=== PATIENT | male | born 1960 | race Caucasian/White ===

== ENCOUNTER 2016-09-11 17:11 | Emergency (ER) | payer BC, OTHER ==
[2016-09-11 18:41] LABS: BASOPHIL % 0.3 % (0.0-0.4); Eosinophil % 2.3 % (0.00-5.0); Granulocytes % 67.9 % (36.0-66.0); Lymphocytes % 17.3 % (24.0-44.0); Mean Cell Volume 92.2 fl (78-100); Mean Corpuscular Hemoglobin 30.5 pg (26-32); Mean Platelet Volume 10.2 fl (6-9.5); Monocytes % 12.2 % (0.0-12.0); Platelet Count 212 K/mm3 (150-450); Red Blood Count 4.88 M/mm3 (4.1-5.6); Red Cell Distribution Width 14.4 % (11.5-14.0); White Blood Count 11.8 K/mm3 (4.0-10.5)
[2016-09-11 18:51] LABS: ALBUMIN 3.5 g/dL (3.4-5.0); ANION GAP 8.8 MEQ/L (5-15); BILIRUBIN,TOTAL 0.4 mg/dL (0.2-1.0); Carbon Dioxide 31.8 mEq/L (21-32); Potassium 4.6 mEq/L (3.5-5.1); Total Protein 7.8 gm/dL (6.4-8.2)
--- NOTE | 2016-09-11 18:54 | ERPHSYRPT ---
<WANDA KELLER - Last Filed: 09/11/16 18:49> - History of Present Illness Time Seen by Provider: 09/11/16 18:15 Historian: patient Exam Limitations: no limitations Patient Subjective Stated Complaint: pt alert, resp easy, skin w/d, moves all ext well, pain with palpation to left side of abd Triage Nursing Assessment: co pain to left abd, hurts worse when moves, pain has been going on since satuardae, no fever,nausea or vomiting, no pain with urination,no injury to abd or back Timing/Duration: day(s) (3) Activities at Onset: none Quality: sharpness Location: other (Left lower costal margin) Chest Pain Radiation: no radiation Severity of Pain-Max: moderate Severity of Pain-Current: moderate Modifying Factors: Improves With: movement, other (heavy smoker) Allergies/Adverse Reactions: naproxen [From Aleve] Allergy (Verified 09/11/16 17:24) Hx Tetanus, Diphtheria Vaccination/Date Given: Yes Hx Influenza Vaccination/Date Given: Yes Hx Pneumococcal Vaccination/Date Given: No Immunizations Up to Date: Yes - Review of Systems Constitutional: No Symptoms Eyes: No Symptoms Ears, Nose, & Throat: No Symptoms Respiratory: Cough, Dyspnea Cardiac: No Symptoms Abdominal/Gastrointestinal: No Symptoms Musculoskeletal: No Symptoms Skin: No Symptoms Neurological: No Symptoms Psychological: No Symptoms Endocrine: No Symptoms Hematologic/Lymphatic: No Symptoms Immunological/Allergic: No Symptoms - Past Medical History Pertinent Past Medical History: Yes Respiratory History: COPD, Emphysema GI Medical History: Diverticulosis - Past Surgical History Past Surgical History: Yes Gastrointestinal: Cholecystectomy, Hernia Repair - Social History Smoking Status: Current every day smoker Exposure to second hand smoke: Yes Drug Use: none Patient Lives Alone: No - Nursing Vital Signs Nursing Vital Signs: Initial Vital Signs Temperature 98.8 F Temperature Source Oral Pulse Rate 79 Respiratory Rate 20 Blood Pressure [Right Arm] 119/84 Pain Intensity 6 - Physical Exam General Appearance: mild distress Eye Exam: eyes nml inspection Ears, Nose, Throat Exam: normal ENT inspection, pharynx normal Neck Exam: normal inspection, non-tender, supple, full range of motion Respiratory Exam: normal breath sounds, chest tenderness (left lower lateral costal margin), lungs clear, airway intact Cardiovascular Exam: regular rate/rhythm, normal heart sounds, normal peripheral pulses Gastrointestinal/Abdomen Exam: soft, normal bowel sounds, tenderness Back Exam: normal inspection, normal range of motion, No CVA tenderness Extremity Exam: normal inspection, normal range of motion, pelvis stable Neurologic Exam: alert, oriented x 3, cooperative Skin Exam: normal color, warm, dry SpO2 Interpretation: normal SpO2: 96 Oxygen Delivery: Room Air - Course Nursing assessment & vital signs reviewed: Yes Ordered Tests: Active Orders 24 hr Category Date Time Status Clean Catch Urine Specimen STAT Care 09/11/16 18:31 Active IV Insertion STAT Care 09/11/16 17:40 Active ABDOMEN AND PELVIS W CONTRAST [CT] Stat Exams 09/11/16 19:38 Taken CHEST 2 VIEWS (PA AND LAT) Stat Exams 09/11/16 18:31 Taken CBC W DIFF Stat Lab 09/11/16 18:37 Completed CMP Stat Lab 09/11/16 18:37 Completed LIPASE Stat Lab 09/11/16 18:37 Completed UA W/ MICROSCOPIC Stat Lab 09/11/16 18:37 Completed Medication Summary Discontinued Medications Generic Name Dose Route Start Last Admin Trade Name Rolando PRN Reason Stop Dose Admin Sodium Chloride 1,000 mls @ 999 mls/hr 09/11/16 19:37 09/11/16 20:25 Sodium Chloride 0.9% 1000 Ml IV 09/11/16 20:37 999 mls/hr .Q1H1M STA Administration Sodium Chloride Confirm 09/11/16 20:24 Sodium Chloride 0.9% 1000 Ml Administered 09/11/16 20:25 Dose 1,000 mls @ ud .ROUTE .STK-MED ONE Lab/Rad Data: Laboratory Result Diagrams 09/11/16 18:37 09/11/16 18:37 Laboratory Results 09/11/16 09/11/16 09/11/16 Range/Units 18:37 18:37 18:37 WBC 11.8 H (4.0-10.5) K/mm3 RBC 4.88 (4.1-5.6) M/mm3 Hgb 14.9 (12.5-18.0) gm/dl Hct 45.0 (42-50) % MCV 92.2 (78-100) fl MCH 30.5 (26-32) pg MCHC 33.1 (32-36) g/dl RDW 14.4 H (11.5-14.0) % Plt Count 212 (150-450) K/mm3 MPV 10.2 H (6-9.5) fl Gran % 67.9 H (36.0-66.0) % Lymphocytes % 17.3 L (24.0-44.0) % Monocytes % 12.2 H (0.0-12.0) % Eosinophils % 2.3 (0.00-5.0) % Basophils % 0.3 (0.0-0.4) % Basophils # 0.04 (0-0.4) Sodium 140 (136-145) mEq/L Potassium 4.6 (3.5-5.1) mEq/L Chloride 104 (98-107) mEq/L Carbon Dioxide 31.8 (21-32) mEq/L Anion Gap 8.8 (5-15) MEQ/L BUN 18 (9-20) mg/dL Creatinine 1.32 H (0.55-1.30) mg/dl Estimated GFR 60 ML/MIN Glucose 97 (70-110) MG/DL Calcium 9.2 (8.5-10.1) mg/dL Total Bilirubin 0.40 (0.2-1.0) mg/dL AST 16 (15-37) U/L ALT 16 (12-78) U/L Alkaline Phosphatase 59 (46-116) U/L Serum Total Protein 7.8 (6.4-8.2) gm/dL Albumin 3.5 (3.4-5.0) g/dL Lipase 99 (73-393) U/L Ur Collection Type CLEAN CATCH Urine Color DARK YELLOW (YELLOW) Urine Appearance CLEAR (CLEAR) Urine pH 6.5 (5-6) Ur Specific [place] 1.025 (1.005-1.025) Urine Protein 30 (Negative) Urine Glucose (UA) NEGATIVE (NEGATIVE) mg/dL Urine Ketones SMALL-15 (NEGATIVE) Urine Nitrite NEGATIVE (NEGATIVE) Urine Bilirubin NEGATIVE (NEGATIVE) Urine Urobilinogen 1 (0-1) mg/dL Urine WBC (Auto) NEGATIVE (NEGATIVE) Urine RBC (Auto) NEGATIVE (0-5) Anurag/ul Urine Microscopic WBC 0-2 (0-5) /HPF Urine Bacteria RARE (NEGATIVE) /HPF Urine Mucus SLIGHT (NEGATIVE) /HPF Specimen Received [id number] - Progress Discussed with DrCharles: Other (Care transferred to Dr. Issa) - Departure Clinical Impression: Left lateral abdominal pain, Colitis Condition: Stable Referrals: ROB KILPATRICK [ACTIVE STAFF] - Instructions: Abdominal Pain-Adult, Quit Smoking Additional Instructions: ABDOMINAL PAIN 1. There are several different causes for abdominal pain, some of which may not be able to be identified on initial examination. 2. The important thing to remember is that bodily functions can change in a short period of time. If you notice any of the following symptoms, return to the emergency department or consult your doctor immediately: A. Worsening pain or no improvement in the next 12 hours. B. Increasing, severe abdominal pain C. Blood in stool D. Black stools E. Persistent vomiting F. Fever or chills or other symptoms Rx levaquin. Rx flagyl- no alcohol use. Stop smoking. See [facility] this week for follow up. Return for passing blood, worsened abdominal pain, fever, vomiting or concerns. [place] diet. Prescriptions: Levofloxacin [Levaquin] 500 mg PO DAILY #10 tablet Metronidazole 500 mg [Flagyl 500 MG] 500 mg PO BID #20 tablet <RASHI ISSA - Last Filed: 09/11/16 21:10> - History of Present Illness Aspirin Treatment Today: no aspirin today - Progress Progress Note: 09/11/16 19:38 Pt was initially seen per Dr Keller. He has hx of emphysema and congenital lung blebs. Works in hospital housekeeping. He has two day hx if left lower abd pain. Normal bowels. Normal urination. No injury. No fever or chills. No cough or shortness of breath. Pain is moderate. Declines pain meds here. PE: Awake, alert. Dim lung sounds but present. Cor reg. Tender in left upper/ mid lateral abdomen. ? spleen or kidney. ? diverticulitis. Will get CT to assess spleen and diverticulitis. 09/11/16 20:54 CT abd: taylor 8:39 PM 09/11/2016: No comps. Short focus of proximal descending colon wall thickening w/ stranding probably colitis. Underlying mass not excluded. No free fluid/air. Sigmoid diverticulosis. Normal appy. Remaining abd/pel negative. 09/11/16 21:07 He had prior colonoscopy with something lasered. He had diarrhea last week. None since. No blood in stool. No fever. He wants to go home. PLans follow up at [facility]. Will Rx levaquin and flagyl. Abd soft. Instr given. Advised colonoscopy when this clears up for further evaluation. Counseled pt/family regarding: lab results, diagnosis, need for follow-up, rad results, smoking cessation - Departure Time of Disposition: 21:08 Departure Disposition: Home Critical Care Time: No
[2016-09-11 19:02] LABS: COMPLETE URINE MICROSCOPIC? YES; Collection Type CLEAN CATCH; Ph 6.5 (5-6)
[2016-09-11 19:03] LABS: ADD URINE CULTURE? NO (NO); Bacteria RARE /HPF (NEGATIVE); Mucus SLIGHT /HPF (NEGATIVE); WBC 0-2 /HPF (0-5)
[2016-09-11] MEDS ORDERED: Sodium Chloride 0.9% 1000 ML 1,000 ML IV STA (19:37)
[2016-09-11] MEDS ORDERED: Sodium Chloride 0.9% 1000 ML 1,000 ML ONE (20:24)
[2016-09-11] MEDS ORDERED: Flagyl 500 MG PO ONE (21:06)
[2016-09-11] MEDS ORDERED: Levofloxacin 500 MG Tablet PO ONE (21:06)
[2016-09-11] MEDS ORDERED: Levofloxacin 500 MG Tablet ONE (21:22)
[2016-09-11] MEDS ORDERED: Flagyl 500 MG ONE (21:22)
[2016-09-11 21:38] VITALS: BP 128/80; PULSE 90; O2SAT 98
--- NOTE | 2016-09-12 08:43 | XRAY ---
Indication: Left costal margin pain. No known injury. History emphysema. Comparison: September 28, 2009. PA/lateral chest unchanged again hyperinflated with marked bullous emphysema greatest in the right upper lung. No focal infiltrate, consolidation, or large effusion. Heart is not enlarged. Bony thorax intact. Impression: Stable nonacute chest again with bullous emphysema.
--- NOTE | 2016-09-12 08:59 | XRAY ---
Indication: Left abdominal/flank pain. History of diverticulitis. Multiple contiguous axial images obtained through the abdomen and pelvis using 80 cc Isovue 370 contrast only. Comparison: None Lung bases are clear. Heart is not enlarged. Noncontrasted stomach and bowel loops appear nonobstructed. Normal appendix. There is little fecal debris in the ascending and transverse colon. Proximal descending colon demonstrates small focus of wall thickening with stranding and tiny fluid favoring colitis. Underlying colonic mass not completely excluded. Mild scattered sigmoid diverticulosis. No walled off fluid collection or free air. There has been cholecystectomy. Enlarged prostate gland impresses on the base of the urinary bladder. Remaining liver, pancreas, spleen, adrenal glands, kidneys, ureters, and bladder appear unremarkable. Mild aortoiliac calcifications. No AAA or pathologic retroperitoneal lymphadenopathy. Osseous structures intact with minimal degenerative changes throughout the lumbar spine. Impression: 1. Small focus of mild colitis involving the proximal descending colon as detailed. Underlying mass not completely excluded. 2. Sigmoid diverticulosis and enlarged prostate gland. CT DI 13.93
== END 2016-09-11 21:55 | disposition home or self-care (01) ==
LOC: ED 17:11
DX: R10.9 Unspecified abdominal pain (principal); K52.9 Noninfective gastroenteritis and colitis, unspecified
CPT/HCPCS: 36000; 36415; 71020; 74177; 80053; 81000; 83690; 85025; 96360; 99284; A9270-GY

== ENCOUNTER 2016-11-21 05:56 | Day surgery (SDC) | payer OTHER ==
[2016-11-21] MEDS ORDERED: DIPRIVAN 200 MG/20 ML IV ONE (05:57)
[2016-11-21] MEDS ORDERED: Ketamine HCl 50 MG/ML IV ONE (05:57)
[2016-11-21] MEDS ORDERED: Lactated Ringers 1,000 ML IV SCH (06:00)
[2016-11-21] MEDS ORDERED: Lactated Ringers 1,000 ML IV ONE (08:13)
[2016-11-21 08:39] VITALS: O2SAT 97
--- NOTE | 2016-11-21 08:41 | OP ---
SURGERY DATE/TIME: 11/21/2016 0657 PREOPERATIVE DIAGNOSES: 1) Abdominal pain. 2) History of colon polyps. POSTOPERATIVE DIAGNOSES: 1) Abdominal pain. 2) History of colon polyps. PROCEDURES: 1) Esophagogastroduodenoscopy with biopsy. 2) Colonoscopy with polypectomy. SURGEON: Dr. Jones. ANESTHESIA: Medications were given by the anesthesia department. HISTORY: The patient is a 55 year old white male patient presenting now for complaints of abdominal pain in the epigastric region. He had his gallbladder removed many years ago. He has also had colonoscopy for bleeding 20 years ago where polyps were also removed. The patient has not been evaluated since that time. He was felt the need to have endoscopic evaluation. At this time he reappraised of the risks of the procedure including the risk of perforation, phlebitis, untoward reaction to medication, bleeding and missed lesions. The patient verbalized his understanding and desired to have the procedure performed. DESCRIPTION OF PROCEDURE: The patient was given the medications by the anesthesia department. He had continuous pulse oximetry, ECG monitoring, intermittent blood pressure monitoring and tidal CO2 monitoring during the examination. He was placed in the left lateral decubitus position. A bite block was placed. The flexible Olympus gastroscope was used to intubate the oropharynx. A view of the esophagus was developed and was normal throughout its length. The stomach was entered where normal gastric rugal folds were seen. The gastric alston was suctioned dry and the stomach was re-insufflated. The gastric rugal folds distended nicely with insufflation of air. The scope was passed along the greater curvature of the stomach to the antrum which appeared to be erythematous and with mild ulcerated areas. The pylorus was encountered and intubated. Duodenum was likewise erythematous. No ulcerations or erosions however were noted here. The scope was withdrawn towards the stomach. Again, a retroflex view was obtained of the lesser curvature, fundus and cardia regions of the stomach and these appeared to be normal. The scope was then redirected towards the gastric antrum and biopsies were obtained to rule out the presence of Helicobacter pylori-type organisms. The scope was then removed from the patient. Next, a digital rectal examination was performed and revealed normal anal sphincter tone and no masses and normal prostate. The flexible Olympus pediatric colonoscope was used to intubate the rectum. A view of the colon was developed sequentially to the cecum. Upon insertion and withdrawal, there was noted mild sigmoid diverticulosis and there was also noted to be pedunculated polyp measuring approximately 2.5 cm in diameter which was removed using polypectomy snare and was retrieved for evaluation and pathology. The scope was then removed from the patient who tolerated the procedure well and was sent back to OP recovery in good condition. The prep was noted to be fair to adequate.
[2016-11-21 10:06] VITALS: BP 119/79; PULSE 67
== END 2016-11-21 08:55 | disposition home or self-care (01) ==
LOC: SDC 05:56
PROVIDERS: ATTEND Family Medicine
PROC: 0DB68ZX Excision of Stomach, Via Natural or Artificial Opening Endoscopic, Diagnostic (ICD-10-PCS; principal; 2016-11-21)
PROC: 0DBN8ZX Excision of Sigmoid Colon, Via Natural or Artificial Opening Endoscopic, Diagnostic (ICD-10-PCS; 2016-11-21)
DX: K29.70 Gastritis, unspecified, without bleeding (principal); K29.80 Duodenitis without bleeding; D12.5 Benign neoplasm of sigmoid colon; R10.9 Unspecified abdominal pain; K57.90 Diverticulosis of intestine, part unspecified, without perforation or abscess without bleeding; Z86.010 Personal history of colon polyps; J44.9 Chronic obstructive pulmonary disease, unspecified
CPT/HCPCS: 00740; 00810; 36415; J2704

== ENCOUNTER 2021-09-01 20:33 | Emergency (ER) | payer OTHER ==
--- NOTE | 2021-09-01 21:29 | ERPHSYRPT ---
- History of Present Illness Time Seen by Provider: 09/01/21 20:55 Source: patient Exam Limitations: no limitations Patient Subjective Stated Complaint: Pt states " I was cleaning a room and went to put a trash bag back in a trash can and the sharps box is right next to it and the needle was sticking out and I stuck my hand." Triage Nursing Assessment: Pt alert and oriented x3, pt ambulatory to room by self appropriately, pt was cleaning a room here at the hospital and stuck his R thumb with a needle about 1 hr prior to checking into ER, no bleeding noted at site, no fever, cough, chest pain, or sob at this time Physician History: Patient is a 60-year-old male presents to emergency department for evaluation of needlestick injury to his right thumb. Patient is a employee in the environmental services department. Patient states he went to put a trash bag back in the trash next to a sharps container. In the process he stopped his right thumb with what he believes was a biopsy needle that was sticking out. Injury occurred approximately 1 hour prior to arrival. Patient otherwise asymptomatic. Patient declined pain medication. Tetanus up-to-date. Timing/Duration: today Severity: moderate Modifying Factors: Improves With: nothing Associated Symptoms: denies symptoms Allergies/Adverse Reactions: naproxen [From Aleve] Allergy (Severe, Verified 11/21/16 06:32) throat swelling, red, uncontrolled diarrhea and vomiting Hx Tetanus, Diphtheria Vaccination/Date Given: Yes Hx Influenza Vaccination/Date Given: Yes Hx Pneumococcal Vaccination/Date Given: Yes Immunizations Up to Date: Yes Travel Risk - International Travel Have you traveled outside of the country in past 3 weeks: No - Coronavirus Screening Are you exhibiting any of the following symptoms?: No Close contact with a COVID-19 positive Pt in past 14-21 Days: No - Vaccine Status Have you recieved a Covid-19 vaccination: Yes [employer]: [employer] - Vaccination Dates Date of 2cond Vaccination (if applicable): 2020 - Review of Systems Constitutional: No Symptoms, No Fever, No Chills Eyes: No Symptoms Ears, Nose, & Throat: No Symptoms Respiratory: No Symptoms, No Cough, No Dyspnea Cardiac: No Symptoms, No Chest Pain, No Edema, No Syncope Abdominal/Gastrointestinal: No Symptoms, No Abdominal Pain, No Nausea, No Vomiting, No Diarrhea Genitourinary Symptoms: No Symptoms, No Dysuria Musculoskeletal: No Symptoms, No Back Pain, No Neck Pain Skin: No Symptoms, No Rash Neurological: No Symptoms, No Dizziness, No Focal Weakness, No Sensory Changes Psychological: No Symptoms Endocrine: No Symptoms Hematologic/Lymphatic: No Symptoms Immunological/Allergic: No Symptoms All Other Systems: Reviewed and Negative - Past Medical History Pertinent Past Medical History: Yes Neurological History: No Pertinent History ENT History: No Pertinent History Cardiac History: No Pertinent History Respiratory History: COPD, Emphysema, Other Endocrine Medical History: No Pertinent History Musculoskeletal History: No Pertinent History GI Medical History: Diverticulosis, Gallbladder Disease, Polyps History: No Pertinent History Psycho-Social History: No Pertinent History Male Reproductive Disorders: No Pertinent History Other Medical History: hx spontaneous pneumothorax - Past Surgical History Past Surgical History: Yes Neuro Surgical History: No Pertinent History Cardiac: No Pertinent History Respiratory: No Pertinent History Gastrointestinal: Cholecystectomy, Hernia Repair Genitourinary: No Pertinent History Musculoskeletal: No Pertinent History Male Surgical History: No Pertinent History - Social History Smoking Status: Current every day smoker Exposure to second hand smoke: Yes Drug Use: none Patient Lives Alone: No - Nursing Vital Signs Nursing Vital Signs: Initial Vital Signs Temperature 97.3 F 09/01/21 20:43 Pulse Rate 79 09/01/21 20:43 Respiratory Rate 16 09/01/21 20:43 Blood Pressure 142/87 09/01/21 20:43 O2 Sat by Pulse Oximetry 94 L 09/01/21 20:43 Pain Scale Pain Intensity 0 - Physical Exam General Appearance: no apparent distress, alert Eye Exam: PERRL/EOMI, eyes nml inspection Ears, Nose, Throat Exam: normal ENT inspection, TMs normal, pharynx normal, moist mucous membranes Neck Exam: normal inspection, non-tender, supple, full range of motion Respiratory Exam: normal breath sounds, lungs clear, airway intact, No respiratory distress Cardiovascular Exam: regular rate/rhythm, normal heart sounds, normal peripheral pulses Gastrointestinal/Abdomen Exam: soft, normal bowel sounds, No tenderness, No mass Back Exam: normal inspection, normal range of motion, No CVA tenderness, No vertebral tenderness Extremity Exam: normal inspection, normal range of motion, pelvis stable, other (Small puncture wound to the right thumb proximal phalanx. No active bleeding. Extremity neurovascular intact distally. Compartments are soft. Cap refill less than 2 seconds.), No tenderness (Patient denies foreign body sensation. No foreign body observed) Neurologic Exam: alert, oriented x 3, cooperative, normal mood/affect, nml cerebellar function, nml station & gait, sensation nml, No motor deficits Skin Exam: normal color, warm, dry, No rash Lymphatic Exam: No adenopathy SpO2 Interpretation: normal SpO2: 94 O2 Delivery: Room Air - Course Nursing assessment & vital signs reviewed: Yes Ordered Tests: Active Orders 24 hr Category Date Time Status Wound Care STAT Care 09/01/21 21:09 Active - Progress Progress: improved Progress Note: Paperwork completed by staff. Associated labs are obtained by our lab staff. Patient declined pain medication. Wound was irrigated and dressed in our ED. Tetanus up-to-date. Patient voices no other complaints or concerns at this time. Patient will follow up as per protocol Portions of this note were created with voice recognition technology. There may be grammatical, spelling, punctuation or sound alike errors 09/01/21 21:33 Counseled pt/family regarding: diagnosis, need for follow-up - Departure Departure Disposition: Home Clinical Impression: Needle stick injury of finger of left hand Condition: Stable Critical Care Time: No Referrals: [facility] [Primary Care Provider] - Follow up/PCP as directed Additional Instructions: Discharge/Care Plan MARYBETH ARMENTA was seen on 09/01/21 in the Emergency Room. The patient was counseled regarding Diagnosis,Lab results, Imaging studies, need for follow up and when to return to the Emergency Room. Prescriptions given: Discharge Note I have spoken with the patient and/or caregivers. I have explained the patient's condition, diagnosis and treatment plan based on the information available to me at this time. I have answered the patient's and/or caregiver's questions and addressed any concerns. The patient and/or caregivers have as good understanding of the patient's diagnosis, condition and treatment plan as can be expected at this point. The vital signs have been stable. The patient's condition is stable and appropriate for discharge from the emergency department. The patient will pursue further outpatient evaluation with the primary care physician or other designated or consulting physician as outlined in the discharge instructions. The patient and/or caregivers are agreeable to this plan of care and follow-up instructions have been explained in detail. The patient and/or caregivers have received these instruction. The patient/and or caregivers are aware that any significant change in condition or worsening of symptoms should prompt an immediate return to this or the closest emergency department or call 911.
[2021-09-01 21:38] VITALS: BP 140/82; PULSE 72; O2SAT 95
[2021-09-03 18:58] LABS: HBsAg Screen Negative (Negative); HIV Screen 4th Generation wRfx Non Reactive (Non Reactive); Hep B Surface Ab, Quant 9.4 mIU/mL (Immunity>9.9); Hep C Virus Ab 0.1 s/co ratio (0.0-0.9)
== END 2021-09-01 21:44 | disposition home or self-care (01) ==
LOC: ED 20:33
DX: S61.031A Puncture wound without foreign body of right thumb without damage to nail, initial encounter (principal); W26.8XXA Contact with other sharp object(s), not elsewhere classified, initial encounter; Y93.E9 Activity, other interior property and clothing maintenance; Y92.230 Patient room in hospital as the place of occurrence of the external cause; Y99.0 Civilian activity done for income or pay; Z20.9 Contact with and (suspected) exposure to unspecified communicable disease; J43.9 Emphysema, unspecified; Z72.0 Tobacco use
CPT/HCPCS: 36415; 86317; 87340; 87389; 99283; G0472; 86803